=== PATIENT | male | born 1995 | race Caucasian/White ===

== ENCOUNTER 2020-06-06 16:16 | Emergency (ER) | payer SELFPAY ==
[~2020-06-06] VITALS: Ht 180.3 cm; Wt 87.3 kg
[2020-06-06] MEDS ORDERED: DOXYCYCLINE100 M3 PO (20:43)
[2020-06-06] MEDS ORDERED: IBUPROFEN600 MG PO (20:43)
== END 2020-06-06 20:50 | disposition home or self-care (01) ==
LOC: ED 16:16
DX: L08.89 Other specified local infections of the skin and subcutaneous tissue (principal); F17.200 Nicotine dependence, unspecified, uncomplicated